=== PATIENT | male | born 1960 | race African-American/Black ===

== ENCOUNTER 2019-02-17 14:06 | Emergency (ER) | payer MEDICAID ==
[~2019-02-17] VITALS: Ht 177.8 cm; Wt 68.0 kg
[2019-02-17] MEDS ORDERED: ALBU6.7H9 IH (14:10)
[2019-02-17] MEDS ORDERED: IPRATROPIUM BROMIDE (0.02%) 0.5MG/2.5ML NEB HHN STA (14:17)
[2019-02-17] MEDS ORDERED: ALBUTEROL (0.083%) 2.5MG/3ML NEB HHN STA (14:17)
[2019-02-17] MEDS ORDERED: PREDNISONE 20MG TABLET PO ONE (15:00)
[2019-02-17 16:15] VITALS: BP 122/68
== END 2019-02-17 16:30 | disposition home or self-care (01) ==
LOC: ER 14:19
DX: J45.901 Unspecified asthma with (acute) exacerbation (principal); F10.129 Alcohol abuse with intoxication, unspecified; Y90.9 Presence of alcohol in blood, level not specified; F17.200 Nicotine dependence, unspecified, uncomplicated; Z79.899 Other long term (current) drug therapy
CPT/HCPCS: 71045; 82962; 94640; 99285; J7512; J7611; Z7610

== ENCOUNTER 2019-07-02 07:43 | Emergency (ER) | payer MEDICAID ==
[~2019-07-02] VITALS: Ht 177.8 cm; Wt 73.0 kg
[~2019-07-02 07:43] MED LIST: ALBU6.7H9 IH
[2019-07-02] MEDS ORDERED: IBUPROFEN 600MG TABLET PO ONE (08:15)
[2019-07-02 09:49] LABS: BASOPHILS % 0.9 % (0.0-2.0); EOSINOPHILS % 8.3 % (0.0-5.0); HEMATOCRIT. 35.3 % (42.0-52.0); HEMOGLOBIN. 11.7 g/dL (14.0-18.0); LYMPHOCYTES % 25.6 % (20.0-50.0); MEAN CORPUSCULAR HEMOGLOBIN 31.6 pg (28.0-32.0); MEAN CORPUSCULAR VOLUME 95.4 fL (80.0-94.0); MONOCYTES % 12.5 % (2.0-8.0); NEUTROPHILS % 52.7 % (40.0-76.0); PLATELET 66 x1000/uL (130-400); RED CELL DISTRIBUTION WIDTH 14.5 % (11.6-14.6)
[2019-07-02 09:57] LABS: CHLORIDE 110 mEq/L (98-107)
[2019-07-02 11:46] VITALS: BP 120/53
== END 2019-07-02 13:32 | disposition home or self-care (01) ==
LOC: ER 08:02
DX: R53.1 Weakness (principal); M25.511 Pain in right shoulder; J45.909 Unspecified asthma, uncomplicated; W18.30XA Fall on same level, unspecified, initial encounter; Y93.89 Activity, other specified; Y92.89 Other specified places as the place of occurrence of the external cause; Y99.8 Other external cause status
CPT/HCPCS: 36415; 71045; 73030; 80053; 83880; 84484; 85025; 93005; 99284

== ENCOUNTER 2021-01-28 15:23 | Emergency (ER) | payer MEDICAID ==
[~2021-01-28] VITALS: Ht 177.8 cm; Wt 82.0 kg
[2021-01-28 17:20] LABS: CHLORIDE 103 mEq/L (98-107)
[2021-01-28 17:21] LABS: HEMATOCRIT. 41.2 % (42.0-52.0); HEMOGLOBIN. 13.9 g/dL (14.0-18.0); MEAN CORPUSCULAR HEMOGLOBIN 32.2 pg (28.0-32.0); MEAN CORPUSCULAR VOLUME 95.2 fL (80.0-94.0); MEAN PLATELET VOLUME 9.7 fl (7.4-10.4); PLATELET 109 x1000/uL (130-400); RED BLOOD CELL COUNT 4.32 mill/uL (4.7-6.1); RED CELL DISTRIBUTION WIDTH 13.1 % (11.6-14.6)
[2021-01-28 17:50] LABS: PLATELET ESTIMATE DECREASED
[2021-01-28] MEDS ORDERED: SODIUM CHLORIDE 0.9% 1,000 ML IV ONE (18:15)
[2021-01-28] MEDS ORDERED: KETOROLAC 15MG/ML VIAL IV ONE (18:15)
[2021-01-28] MEDS ORDERED: AZIT250T12 MT (20:10)
[2021-01-28 21:35] VITALS: BP 134/64
== END 2021-01-28 21:43 | disposition home or self-care (01) ==
LOC: ER 15:23
DX: U07.1 COVID-19 (principal); J12.82 Pneumonia due to coronavirus disease 2019; Z87.891 Personal history of nicotine dependence; J45.909 Unspecified asthma, uncomplicated
CPT/HCPCS: 36415; 71045; 80053; 83880; 84484; 85025; 87426; 93005; 96361; 96374; 99285; J1885; J7030